=== PATIENT | female | born 2000 | race Caucasian/White ===

== ENCOUNTER 2020-03-21 13:09 | Emergency (ER) | payer MEDICAID, OTHER ==
[~2020-03-21] VITALS: Ht 162.6 cm; Wt 104.5 kg
[~2020-03-21 13:09] MED LIST: NITR100C6 PO; ONDA8TAB9 PO; RISP2TAB44 PO; VALP250S11 PO
[2020-03-21] MEDS ORDERED: NO HOME MEDS (13:38)
--- NOTE | 2020-03-21 13:39 | NUR ---
CALL TO [facility] WITH POISON CONTROL AT THIS TIME. INSTRUCTED TO MONITOR PATIENT FOR 6 HRS, SIDE EFFECTS INCLUDE DIZZINESS, TACHYCARDIA BUT CAN CAUSE BRADYCARDIA, SEDATIONO, SOMULENCE. RECOMMENDED LABS; CMP, APIRIN, ALCOHOL, HCG. IF SEIZURES OCCUR THEN ADMINISTER BENZODIAZEPINE. ZAC LEVIN MADE AWARE.
[2020-03-21 13:43] LABS: BASOPHILS # (AUTO) 0.1 X10'3 (0-0.2); BASOPHILS % (AUTO) 0.7 % (0-1); EOSINOPHILS % (AUTO) 0.3 % (0-6); HEMATOCRIT 38.6 % (35.0-45.0); HEMOGLOBIN 12.9 g/dl (12.0-16.0); LYMPHOCYTES # (AUTO) 1.5 X10'3 (1.1-4.8); LYMPHOCYTES % (AUTO) 15.9 % (21-51); MEAN CORPUSCULAR HEMOGLOBIN 29.2 PG (27.0-31.0); MEAN CORPUSCULAR HGB CONC 33.6 g/dL (33.0-36.5); MEAN CORPUSCULAR VOLUME 87.1 FL (78-98); MEAN PLATELET VOLUME 9.5 FL (7.4-10.4); MONOCYTES # (AUTO) 0.6 X10'3 (0-0.9); MONOCYTES % (AUTO) 6.3 % (2-12); NEUTROPHILS # (AUTO) 7.2 X10'3 (1.8-7.7); NEUTROPHILS % (AUTO) 76.8 % (42-75); PLATELET COUNT 304 X10'3 (140-440); RED BLOOD COUNT 4.43 X10'6 (4.20-5.60); RED CELL DISTRIBUTION WIDTH 13.3 % (11.5-14.5); WHITE BLOOD COUNT 9.4 X10'3 (4.5-11.0)
[2020-03-21 14:04] LABS: ALANINE AMINOTRANSFERASE 28 U/L (12-78); ALKALINE PHOSPHATASE 89 IU/L (20-180); ANION GAP 8 (8-16); ASPARTATE AMINO TRANSFERASE 20 U/L (10-37); BILIRUBIN,TOTAL 0.6 MG/DL (0.1-1.0); BLOOD UREA NITROGEN 12 MG/DL (7-18); BUN/CREATININE RATIO 12.9 (6.6-38.0); CALCIUM 9.3 MG/DL (8.5-10.1); CHLORIDE 105 MMOL/L (99-107); CREATININE 0.93 MG/DL (0.40-0.90); GLUCOSE 103 MG/DL (70-104); POTASSIUM 3.7 MMOL/L (3.5-5.1); SODIUM 138 MMOL/L (135-145); TOTAL CARBON DIOXIDE 25.2 MMOL/L (24-32); TOTAL PROTEIN 8.1 G/DL (6.4-8.2); eGFR 77 ML/MIN
[2020-03-21 14:15] LABS: VALPROATE < 3.0 UG/ML (50-100)
--- NOTE | 2020-03-21 14:15 | NUR ---
PATIENT SLEEPING, NO SIGNS OF DISTRESS NOTED, VSS, WILL CONTINUE TO MONITOR.
[2020-03-21 14:22] LABS: ACETAMINOPHEN < 2.0 UG/ML (10-30); ETHANOL < 0.010 GM/DL (0.0-0.010)
[2020-03-21 14:34] LABS: URINE HCG NEGATIVE (NEG)
[2020-03-21 14:35] LABS: CLARITY,URINE CLOUDY (Clear); COLOR,URINE YELLOW (Yellow); GLUCOSE, URINE NEGATIVE (Neg); KETONES,URINE NEGATIVE (Neg); LEUKOCYTE ESTERASE ,URINE NEGATIVE (Neg); NITRITES, URINE NEGATIVE (Neg); OCCULT BLOOD,URINE NEGATIVE (Neg); PROTEIN,URINE NEGATIVE (Neg); UROBILINOGEN,URINE 0.2 E.U/dL (0.2-1.0)
[2020-03-21 14:40] LABS: UA COLLECTION TYPE CLN CATCH MIDSTREAM
[2020-03-21 14:42] LABS: BACTERIA,URINE 3+ /HPF (Neg); MUCUS STRANDS MANY /LPF (Neg); RBC,URINE NONE SEEN /HPF (0-2); SQUAMOUS EPITHELIAL CELL,UR MANY /LPF (FEW); URINE AMPHETAMINE SCREEN NEGATIVE (Neg); URINE BARBITUATE SCREEN NEGATIVE (Neg); URINE BENZODIAZEPINES SCREEN NEGATIVE (Neg); URINE CANNABINOID SCREEN POSITIVE (Neg); URINE COCAINE SCREEN NEGATIVE (Neg); URINE METHADONE SCREEN NEGATIVE (Neg); URINE OPIATE SCREEN NEGATIVE (Neg); URINE PHENCYCLIDINE SCREEN NEGATIVE (Neg); WBC,URINE 0-4 /HPF (0-4)
--- NOTE | 2020-03-21 15:47 | NUR ---
PATIENT SLEEPING, NO SIGNS OF DISTRESS NOTED, VSS, WILL CONTINUE TO MONITOR.
--- NOTE | 2020-03-21 15:58 | NUR ---
PACKET SENT [facility]
--- NOTE | 2020-03-21 16:59 | NUR ---
ZAC LEVIN MADE AWARE PATIENT'S HR HAS BEEN IN THE 40'S RANGE X1 HR. ZAC IS AWARE AND STATES PAT HR DROPS WHEN PATIENT SLEEPS, WILL CONTINUE TO MONITOR PER POISON CONTROL.
[2020-03-21 20:00] VITALS: BP 144/80
--- NOTE | 2020-03-21 20:15 | NUR ---
Patients friend Wade Patel calling and now speaking with her. [facility] control[facility], calling to speak with Ann, Primary RN.
--- NOTE | 2020-03-21 20:18 | NUR ---
Poison Control called for update, stated no worsening of condition expected, patient can be cleared if at baseline.
== END 2020-03-21 21:47 | disposition home or self-care (01) ==
LOC: ER 13:10
DX: F32.9 Major depressive disorder, single episode, unspecified (principal); R45.851 Suicidal ideations; R42 Dizziness and giddiness; F12.90 Cannabis use, unspecified, uncomplicated; Z88.8 Allergy status to other drugs, medicaments and biological substances
CPT/HCPCS: 36415; 80053; 80164; 80305; 80320; 80329; 81001; 81025; 84443; 85025; 93005; 99291